=== PATIENT | female | born 1965 ===

== ENCOUNTER 2025-07-21 02:55 | Emergency (ER) | payer SELFPAY ==
[~2025-07-21] VITALS: Ht 160 cm; Wt 61.3 kg
[2025-07-21] MEDS ORDERED: OMEPRAZOLE20 MG PO (03:07)
[2025-07-21] MEDS ORDERED: LIDOCAINE 2% W/ EPI 1:100,000 20 ML VIAL ONE (03:25)
[2025-07-21 03:40] VITALS: BP 126/85
== END 2025-07-21 03:41 | disposition home or self-care (01) ==
LOC: ED 02:55
DX: K08.89 Other specified disorders of teeth and supporting structures (principal)
CPT/HCPCS: 64400; 99282